=== PATIENT | male | born 1965 | race African-American/Black ===

== ENCOUNTER 2017-03-02 08:16 | Inpatient (IN) | payer OTHER ==
[~2017-03-02] VITALS: Ht 200.7 cm; Wt 124.3 kg
[~2017-03-02 08:16] MED LIST: CEPH-570 PO; LISI10TA5 PO; SIMV20TA6 PO
--- NOTE | 2017-03-02 08:23 | NUR ---
CYST ON GROIN AREA X 3 DAYS ELECTRONICS TECHNOLOGY DEPARTMENT CHAIR. GOWNED PT. AWAITING MD ORDER
[2017-03-02] MEDS ORDERED: HYDROMORPHONE 1 MG/1 ML DISP.SYRIN ONE ×2 (08:38→10:39)
--- NOTE | 2017-03-02 08:45 | NUR ---
LAC #18 IV ACCESS. BLOOD SAMPLE COLLECTED SENT TO LAB. PT MEDICATED ORDERED
[2017-03-02 08:52] LABS: BASOPHILS % (AUTO) 0.3 % (0.0-2.0); EOSINOPHILS % (AUTO) 0.4 % (0.0-6.0); HEMATOCRIT 46 % (39-51); HEMOGLOBIN 14.7 g/dL (13.5-17.5); LYMPHOCYTES # (AUTO) 1.5 /CMM (0.8-4.8); LYMPHOCYTES % (AUTO) 12.8 % (20.0-44.0); MEAN CORPUSCULAR HEMOGLOBIN 29 PG (26.0-33.0); MEAN CORPUSCULAR HGB CONC 32 g/dl (31.0-36.0); MEAN CORPUSCULAR VOLUME 89 fL (80-96); MONOCYTES # (AUTO) 0.8 /CMM (0.1-1.30); MONOCYTES % (AUTO) 7.1 % (2.0-12.0); NEUTROPHILS # (AUTO) 9.3 /CMM (1.8-8.9); NEUTROPHILS % (AUTO) 79.4 % (43.0-81.0); PLATELET COUNT (AUTO) 204 /CMM (150-450); RDW COEFFICIENT OF VARIATION 13.7 (11.5-15.0); RED BLOOD CELL COUNT(AUTO) 5.14 MIL/uL (4.5-6.0); WHITE BLOOD COUNT (AUTO) 11.7 K/uL (4.3-11.0)
--- NOTE | 2017-03-02 08:59 | NUR ---
CALLED XRAY PT READY FOR CT
[2017-03-02] MEDS ORDERED: HYDROMORPHONE INJ 2 MG/ML DISP.SYRIN IV ONE (09:00)
[2017-03-02 09:02] LABS: CREATININE 1.2 mg/dL (0.6-1.3); POTASSIUM 3.6 mmol/L (3.5-5.1)
[2017-03-02] MEDS ORDERED: CT SWABBABLE VALVE TRANS SET 1 EA INFUS.SET MC ONE (09:19)
[2017-03-02] MEDS ORDERED: IOHEXOL-300 100 ML VIAL IV ONE (09:19)
--- NOTE | 2017-03-02 09:19 | NUR ---
PT TAKEN TO CT
[2017-03-02] MEDS ORDERED: IV NS 0.9% 250 ML IV ONE (09:20)
--- NOTE | 2017-03-02 09:35 | NUR ---
PT BACK FROM CT
--- NOTE | 2017-03-02 09:39 | NUR ---
URINE SAMPLE COLLECTED SENT TO LAB
[2017-03-02 09:44] LABS: APPEARANCE,URINE Slightly Cloudy (CLEAR); BILIRUBIN,URINE SMALL (NEGATIVE); BLOOD, URINE Negative Ery/uL (NEGATIVE); COLOR,URINE Dark (YELLOW); KETONES,URINE Negative (NEGATIVE); LEUKOCYTE ESTERASE ,URINE Negative (NEGATIVE); NITRITE, URINE Negative (NEGATIVE); PH,URINE 5.5 (5.0-8.0); PROTEIN,URINE 30 mg/dl (NEGATIVE); UGLUCOSE Negative (NEGATIVE)
[2017-03-02 09:55] LABS: BACTERIA,URINE Rare /HPF (None Seen); RBC,URINE 0-2 /HPF (0-2); SQUAMOUS EPITHELIAL CELL,UR Rare /HPF (None Seen); WBC,URINE 0-2 /HPF (0-3)
[2017-03-02] MEDS ORDERED: LIDOCAINE 2% 20 ML MDV ONE (10:37)
[2017-03-02] MEDS ORDERED: LIDOCAINE 2%-EPI 1:100,000 30 ML VIAL TP ONE (11:00)
[2017-03-02] MEDS ORDERED: HYDROMORPHONE 1 MG/1 ML DISP.SYRIN IV ONE (11:00)
[2017-03-02] MEDS ORDERED: DULO30CA2 PO (11:02)
--- NOTE | 2017-03-02 11:45 | NUR ---
ms wound care rn notes Admitted a 52 years old male patient from ER who came in with the diagnosis of groin abscess, patient is alert and oriented x 4, verbally responsive and able to make needs known. Skin assessment done and picture taken and filed in the chart. Informed Dr. Rivera regarding admission orders and made aware. Per MD to keep patient NPO for I and D procedure. Vital signs checked and recorded. Kept patient clean and comfortable in bed, call light with in patient reach, will continue to monitor accordingly.
[2017-03-02 12:00] VITALS: BP 131/85
[2017-03-02] MEDS ORDERED: MORPHINE SULFATE INJ 2 MG/ML DISP.SYRIN IV PRN (13:00)
[2017-03-02] MEDS ORDERED: ONDANSETRON HCL/PF 4 MG/2 ML VIAL IVP PRN (13:00)
[2017-03-02] MEDS ORDERED: VANCOMYCIN 1 GM in IV D5W 250 ML IV SCH (13:00)
[2017-03-02] MEDS ORDERED: FEE PK DOSING 1 MIN EA MC ONE (13:13)
[2017-03-02] MEDS: IV NS 0.9% 1,000 ML IV PRN (13:46)
[2017-03-02] MEDS ORDERED: VANCOMYCIN 1.5 GM in IV D5W 500 ML IV SCH (14:00)
[2017-03-02] MEDS: PIPERACILLIN /TAZOBACTAM 3.375 G in IV D5W 50 ML IV SCH ×2 (14:21→18:07)
[2017-03-02 16:00] VITALS: BP 127/84
--- NOTE | 2017-03-02 19:00 | NUR ---
MS RN OPENING NOTES: RECEIVED PT IN BED AND IS AWAKE. PT IS A/OX3. PT A LITTLE BIT GRUMPY BECAUSE HE IS NPO. HE WAS INFORMED THAT OR WILL BE PICKING HIM UP SOON FOR PROCEDURE. PT HAS IV ON L AC #18G AND IS BEING INFUSED WITH NS AT 125ML/HR. CALL LIGHT WITHIN PT'S REACH. BED KEPT IN LOW, LOCKED POSITION, AND SIDE RAILS X 2 UP. WILL CONTINUE TO MONITOR PT.
--- NOTE | 2017-03-02 19:46 | NUR ---
ms rn closing notes All needs provided, attended, and anticipated. Kept patient clean and comfortable in bed, call light with in patient reach, endorsed to next shift RN to continue care. Patient still waiting for scheduled surgery I and D with Dr. Macias called OR and spoke to Luke and said he will be next on the schedule for tonight.
[2017-03-02 19:48] VITALS: BP 128/71
[2017-03-02 20:00] VITALS: BP 128/71
--- NOTE | 2017-03-02 20:00 | NUR ---
MS RN NOTES: ICE PACK APPLIED TO PT'S FOREHEAD AND COOLING MEASURES TAKEN PLACE WELL. WILL CONTINUE TO MONITOR PT'S TEMPERATURE.
--- NOTE | 2017-03-02 21:03 | NUR ---
MS RN NOTES: PT WENT DOWN FOR PROCEDURE. WATCH AND BRACELET LEFT UP FRONT AT CHARGE NURSE'S DRAWER.
[2017-03-02] MEDS ORDERED: SUCCINYLCHOLINE CHLORIDE 20 MG/ML VIAL ONE (21:13)
[2017-03-02] MEDS ORDERED: ROCURONIUM BROMIDE 50 MG/5 ML ONE (21:13)
[2017-03-02] MEDS ORDERED: BUPIVACAINE MPF W/EPI 0.25% 30 ML VIAL ONE (21:40)
[2017-03-02] MEDS ORDERED: LIDOCAINE 1% INJ 50 ML MDV IJ ONE (21:41)
[2017-03-02 22:50] VITALS: BP 118/78
--- NOTE | 2017-03-02 22:51 | NUR ---
MS MCKEON NOTES: PT BACK FROM OR. VITAL SIGNS STABLE. PT ON 2LPM VIA NC FOR NOW. Addendum: 03/03/17 at 0320 by BILL GONZALES RN PER DR. GREGG WRITTEN ORDERS, NO MORE ANTIBIOTICS.
[2017-03-02] MEDS ORDERED: ONDANSETRON HCL/PF 4 MG/2 ML VIAL IV PRN (23:00)
--- NOTE | 2017-03-02 23:00 | NUR ---
MS RN NOTES: DR. NY SAID THAT PATIENT CAN USE CPAP. WILL PUT IN ORDER AND HAVE RT COME TO THE FLOOR.
--- NOTE | 2017-03-02 23:05 | NUR ---
MS RN NOTES: WATCH AND BRACELET RETURNED TO PATIENT.
--- NOTE | 2017-03-02 23:30 | NUR ---
PT PLACED ON CPAP AT NIGHT PER MD'S ORDER. LINDA LUCIO NOTIFIED
[2017-03-03] MEDS: IV NS 0.9% 1,000 ML IV PRN (02:14)
--- NOTE | 2017-03-03 05:47 | NUR ---
TOOK OFF CPAP PER PT REQUEST. PT PLACED ON 2L VANDANA , LINDA LUCIO NOTIFIED
[2017-03-03 07:17] LABS: CALCIUM, SERUM 8.6 mg/dL (8.5-10.1); PHOSPHORUS 3.9 mg/dL (2.5-4.9); POTASSIUM 4.2 mmol/L (3.5-5.1)
[2017-03-03 07:20] LABS: HEMATOCRIT 44 % (39-51); HEMOGLOBIN 14.4 g/dL (13.5-17.5); LYMPHOCYTES # (AUTO) 0.8 /CMM (0.8-4.8); LYMPHOCYTES % (AUTO) 5.1 % (20.0-44.0); MEAN CORPUSCULAR HEMOGLOBIN 29 PG (26.0-33.0); MEAN CORPUSCULAR HGB CONC 32 g/dl (31.0-36.0); MEAN CORPUSCULAR VOLUME 89 fL (80-96); MONOCYTES # (AUTO) 0.5 /CMM (0.1-1.30); MONOCYTES % (AUTO) 3.3 % (2.0-12.0); NEUTROPHILS # (AUTO) 13.8 /CMM (1.8-8.9); NEUTROPHILS % (AUTO) 91.6 % (43.0-81.0); PLATELET COUNT (AUTO) 200 /CMM (150-450); RDW COEFFICIENT OF VARIATION 13.6 (11.5-15.0); RED BLOOD CELL COUNT(AUTO) 4.99 MIL/uL (4.5-6.0); WHITE BLOOD COUNT (AUTO) 15.1 K/uL (4.3-11.0)
[2017-03-03 07:28] LABS: THYROID STIMULATING HORMONE 0.264 uIU/mL (0.358-3.74)
--- NOTE | 2017-03-03 07:38 | NUR ---
MS RN CLOSING NOTES: ALL NEEDS WERE ATTENDED AND ANTICIPATED FOR. PT IS IN BED AND IS AWAKE. FRIEND BROUGHT IN HIS OWN CPAP MACHINE. ENDORSED TO AM NURSE THAT IT NEEDS TO BE CLEARED BY ENGINEERING BEFORE HE CAN USE IT FOR THE NIGHT. PT HAS IV ON L AC #18G AND IS BEING INFUSED WITH NS AT 125ML/HR. CALL LIGHT WITHIN PT'S REACH. BED KEPT IN LOW, LOCKED POSITION, AND SIDE RAILS X 2 UP. ENDORSED TO AM NURSE FOR JUDD.
--- NOTE | 2017-03-03 07:45 | NUR ---
MS RN OPENING NOTES PT IS ALERT AND ORIENTED IN NO APPARENT DISTRESS. CALL LIGHT WITHIN REACH. BED IS LOCKED AND LOWERED. SIDE RAILS ARE UP X2. WILL CONTINUE TO MONITOR.
[2017-03-03] MEDS: GABAPENTIN 300 MG CAPSULE PO SCH ×2 (08:05→13:35)
[2017-03-03 08:06] VITALS: BP 107/70
[2017-03-03] MEDS: HYDROCODONE/APAP 10/325MG 1 EA TABLET PO PRN ×2 (08:20→12:32)
[2017-03-03] MEDS ORDERED: PANTOPRAZOLE 40 MG VIAL IV SCH (09:00)
[2017-03-03] MEDS ORDERED: SULF1TAB48 PO (13:48)
[2017-03-03 16:00] VITALS: BP 107/57
--- NOTE | 2017-03-03 17:44 | NUR ---
MS RN CLOSING NOTES PATIENT IS IN STABLE CONDITION. WAS ESCORTED OUT OF THE HOSPITAL FOR DISCHARGE.
== END 2017-03-03 17:50 | disposition home or self-care (01) | DRG 951 ==
LOC: ER 08:18 → MED 11:26
PROC: 0J9B0ZZ Drainage of Perineum Subcutaneous Tissue and Fascia, Open Approach (ICD-10-PCS; principal; 2017-03-02 17:00)
DX: K61.0 Anal abscess (principal); L02.215 Cutaneous abscess of perineum; I10 Essential (primary) hypertension; Z96.659 Presence of unspecified artificial knee joint; Z88.6 Allergy status to analgesic agent; K57.30 Diverticulosis of large intestine without perforation or abscess without bleeding; M47.9 Spondylosis, unspecified; Z79.899 Other long term (current) drug therapy
CPT/HCPCS: 36415; 72193-TC; 80048-TC; 80061-TC; 81000-TC; 83735-TC; 84100-TC; 84443-TC; 85025-TC; 87070-TC; 87081-TC; A6253; A6402; A6403; A6407; C9113; J0330; J1100; J1170; J2405; J2543; J2704; J2710; J3370; J3490; J7030; J7050; J7060; Q9967; Z7610

== ENCOUNTER 2017-07-21 20:41 | Emergency (ER) | payer OTHER ==
[~2017-07-21 20:41] MED LIST changes: -CEPH-570 PO; +DULO30CA2 PO; +SULF1TAB48 PO
--- NOTE | 2017-07-21 21:23 | NUR ---
PATIENT STARTED TO CURSE AT ME WHEN STATED HE WILL BE WAITING FOR A BED, PT STATES CANCLE MY SHIT I AM LEAVING AND WALKED OUT OF THE ER WITH A STEADY GAIT.
== END 2017-07-21 21:24 | disposition left against medical advice (07) ==
LOC: ER 20:44
DX: Z53.21 Procedure and treatment not carried out due to patient leaving prior to being seen by health care provider (principal)
CPT/HCPCS: A4606; Z7610

== ENCOUNTER 2017-10-25 14:02 | Inpatient (IN) | payer OTHER ==
[~2017-10-25] VITALS: Ht 200.7 cm; Wt 121.1 kg
--- NOTE | 2017-10-25 14:59 | NUR ---
PATIENT TO ED DT LOWER ABDPMINAL PAIN, / SINCE WEDNESDAY, WORSEINNG GRADUALLY. PATIENT ALSO CO NAUSEA, DIARRHEA. SKIN IS WARM TO TOUCH AND NON DIAPHORETIC, PT IS AFEBRILE./ VSS
[2017-10-25 15:00] LABS: BASOPHILS % (AUTO) 0.7 % (0.0-2.0); EOSINOPHILS % (AUTO) 1.8 % (0.0-6.0); HEMATOCRIT 50 % (39-51); HEMOGLOBIN 16.3 g/dL (13.5-17.5); LYMPHOCYTES # (AUTO) 1.6 /CMM (0.8-4.8); LYMPHOCYTES % (AUTO) 29.1 % (20.0-44.0); MEAN CORPUSCULAR HGB CONC 33 g/dl (31.0-36.0); MEAN CORPUSCULAR VOLUME 87 fL (80-96); MONOCYTES # (AUTO) 0.4 /CMM (0.1-1.30); MONOCYTES % (AUTO) 6.7 % (2.0-12.0); NEUTROPHILS # (AUTO) 3.5 /CMM (1.8-8.9); NEUTROPHILS % (AUTO) 61.7 % (43.0-81.0); PLATELET COUNT (AUTO) 215 /CMM (150-450); RDW COEFFICIENT OF VARIATION 12.9 (11.5-15.0); RED BLOOD CELL COUNT(AUTO) 5.71 MIL/uL (4.5-6.0); WHITE BLOOD COUNT (AUTO) 5.6 K/uL (4.3-11.0)
[2017-10-25] MEDS ORDERED: IV NS 0.9% 1,000 ML BAG IV ONE (15:00)
[2017-10-25] MEDS ORDERED: MORPHINE SULFATE INJ 4 MG/ML DISP.SYRIN ONE (15:04)
[2017-10-25] MEDS ORDERED: ONDANSETRON HCL/PF 4 MG/2 ML VIAL ONE (15:04)
[2017-10-25] MEDS: MORPHINE SULFATE INJ 2 MG/ML DISP.SYRIN IV ONE ×2 (15:08→15:51)
[2017-10-25] MEDS: ONDANSETRON HCL/PF 4 MG/2 ML VIAL IVP ONE ×2 (15:08→15:51)
[2017-10-25 15:09] LABS: CREATININE 1.3 mg/dL (0.6-1.3); POTASSIUM 4.3 mmol/L (3.5-5.1)
[2017-10-25 15:14] LABS: ALBUMIN 3.6 g/dL (3.4-5.0); BILIRUBIN,DIRECT 0.1 mg/dL (0.0-0.2); BILIRUBIN,TOTAL 0.5 mg/dL (0.2-1.0)
[2017-10-25] MEDS ORDERED: ONDANSETRON HCL/PF 4 MG/2 ML VIAL IV STA (15:14)
[2017-10-25] MEDS ORDERED: MORPHINE SULFATE INJ 2 MG/ML DISP.SYRIN IV ONE (15:30)
[2017-10-25] MEDS ORDERED: ACET1TAB23 PO (15:48)
[2017-10-25] MEDS ORDERED: TRAZ-213 PO (15:48)
--- NOTE | 2017-10-25 15:51 | NUR ---
MORPHINE 4MG IV AND ZOFRAN 4MG IV ORDER WAS DOUBLED IN [facility] ONCE PULLED OUT FROM [facility]. CALLED [facility] FOR CLARIFICATION AND WAS INFORMED TO UNDO ONE ORDER WHICH WAS AUTOMACALLY MARKED GIVEN. MADE AWARE. PATIENT RECEIVED MORPHINE 4MG ONLY AND ZOFRAN 4MG ONLY ORDERED. INCIDENT WITNESSED BY LINDA MONTALVO.
--- NOTE | 2017-10-25 16:00 | NUR ---
CALLED NURSE TRENA FOR MED-SURG BED
--- NOTE | 2017-10-25 16:35 | NUR ---
PAGED EPIC CLOUD CONSULTANT - LIFE SCIENTIST MIREYA FLORIAN - FOR PANEL
--- NOTE | 2017-10-25 16:35 | NUR ---
[facility]
--- NOTE | 2017-10-25 16:43 | NUR ---
URINE SAMPLE SENT TO LAB
[2017-10-25 17:03] LABS: APPEARANCE,URINE CLEAR (CLEAR); BILIRUBIN,URINE NEGATIVE (NEGATIVE); BLOOD, URINE NEGATIVE Ery/uL (NEGATIVE); COLOR,URINE YELLOW (YELLOW); KETONES,URINE 1+ (NEGATIVE); LEUKOCYTE ESTERASE ,URINE NEGATIVE (NEGATIVE); NITRITE, URINE NEGATIVE (NEGATIVE); PH,URINE 5.5 (5.0-8.0); PROTEIN,URINE NEGATIVE (NEGATIVE); UGLUCOSE NEGATIVE (NEGATIVE)
[2017-10-25 17:19] LABS: BACTERIA,URINE None seen /HPF (None Seen); RBC,URINE NONE SEEN /HPF (0-2); SQUAMOUS EPITHELIAL CELL,UR Few /HPF (None Seen); WBC,URINE 0-2 /HPF (0-3)
[2017-10-25] MEDS ORDERED: MAGNESIUM HYDROXIDE 30 ML UDC PO PRN (17:30)
[2017-10-25] MEDS ORDERED: AZITHROMYCIN 250 MG TABLET PO SCH (17:30)
[2017-10-25] MEDS ORDERED: MAG HYDROX/AL HYDROX/SIMETH 30 ML UDC PO PRN (17:30)
[2017-10-25] MEDS ORDERED: Z GUARD REMEDY 2 OZ OINT TP PRN (17:30)
[2017-10-25] MEDS ORDERED: ONDANSETRON HCL/PF 4 MG/2 ML VIAL IVP PRN (17:30)
[2017-10-25] MEDS ORDERED: ACETAMINOPHEN 325 MG TABLET PO PRN (17:30)
--- NOTE | 2017-10-25 17:35 | NUR ---
PATIENT TRANSPORTED TO MS. S
--- NOTE | 2017-10-25 17:36 | NUR ---
MS RAIL SPECIALIST NOTE PATIENT BROUGHT BY HÉCTOR FROM ER. RECEIVED REPORT FOR LINDA RAYGOZA. PATIENT IS ALERT AND ORIENTED x4. PATIENT STATES 8/10. PAIN MEDICATION TO BE GIVEN ONCE ORDERS ARE GIVEN. ALL BELONGINGS ACCOUNTED FOR AND AT BEDSIDE. NO SKIN ISSUES PRESENT AT THIS TIME. ON ROOM AIR AT 97%. AMBULATORY. IV ON LEFT AC 18G INTACT AND PATENT NO REDNESS OR SWELLING NOTED. ABLE TO COMMUNICATE NEEDS. CALL LIGHT WITHIN REACH AND SAFETY MEASURES IMPLEMENTED. ALLERGIES-IBUPROFEN NOTED. WILL CONTINUE TO MONITOR AND AWAITING MD ORDERS AT THIS TIME.
[2017-10-25] MEDS: MORPHINE SULFATE INJ 4 MG/ML DISP.SYRIN IV PRN (17:50)
[2017-10-25] MEDS: IV NS 0.9% 1,000 ML IV PRN (17:51)
[2017-10-25 17:54] VITALS: BP 145/74
[2017-10-25] MEDS: CIPROFLOXACIN HCL 500 MG TABLET PO SCH (18:53)
--- NOTE | 2017-10-25 18:58 | NUR ---
MS RN CLOSING NOTE PATIENT IS RESTING IN BED AT THIS TIME. CALL LIGHT WITHIN REACH AT ALL TIMES. SAFETY MEASURES IMPLEMENTED. ABLE TO COMMUNICATE NEEDS. IV INTACT AND PATENT NO REDNESS OR SWELLING NOTED WITH IV FLUIDS RUNNING AT 75 ML/HR. ABLE TO COMMUNICATE NEEDS. ALL DUE MEDICATIONS GIVEN ORDERED BY MD. ALL NURSING CARE NEEDS ATTENDED TO NEEDED. NO FACIAL GRIMACING NOTED FOR PAIN. NO SOB OR DISTRESS NOTED. WILL ENDORSE TO MECHANIC INSULATOR NURSE FOR JUDD
--- NOTE | 2017-10-25 19:33 | NUR ---
MSRN FULLY AWAKE, DENIES ANY DISCOMFORTS OF THIS TIME. IVF INFUSING WELL AT 75CC/HR. INSTRUCTED TO CALL STAFF FOR ANY DISCOMFORTS OR ASSISTANCE. PLAN OF CARE AND MEDICATION REGIMEN INSTRUCTED, WELL UNDERSTOOD. ALL NEEDS MADE.
[2017-10-25 19:58] VITALS: BP 137/75
[2017-10-25 20:00] VITALS: BP 137/75
[2017-10-25] MEDS: SIMVASTATIN 20 MG TABLET PO SCH (22:20)
--- NOTE | 2017-10-25 22:25 | NUR ---
MSRN DUE MED ADMINISTERED. NO OTHER DISCOMFORTS MADE. KEPT COMFORTABLE.
--- NOTE | 2017-10-26 04:40 | NUR ---
MSRN VERBALIZES SEVERE ABDOMINAL AND HEADACHE, MORPHINE 1MG IVP ADMINISTERED. NS AT 75CC/HR CONTINUED. MED UNABLE TO BARCODE, COMPUTER DOWN.
[2017-10-26 06:25] LABS: BASOPHILS % (AUTO) 0.5 % (0.0-2.0); EOSINOPHILS % (AUTO) 3.3 % (0.0-6.0); HEMATOCRIT 44 % (39-51); HEMOGLOBIN 14.1 g/dL (13.5-17.5); LYMPHOCYTES # (AUTO) 1.6 /CMM (0.8-4.8); LYMPHOCYTES % (AUTO) 31.1 % (20.0-44.0); MEAN CORPUSCULAR HGB CONC 33 g/dl (31.0-36.0); MEAN CORPUSCULAR VOLUME 91 fL (80-96); MONOCYTES # (AUTO) 0.5 /CMM (0.1-1.30); MONOCYTES % (AUTO) 10.2 % (2.0-12.0); NEUTROPHILS # (AUTO) 2.8 /CMM (1.8-8.9); NEUTROPHILS % (AUTO) 54.9 % (43.0-81.0); PLATELET COUNT (AUTO) 187 /CMM (150-450); RDW COEFFICIENT OF VARIATION 13.9 (11.5-15.0); RED BLOOD CELL COUNT(AUTO) 4.79 MIL/uL (4.5-6.0); WHITE BLOOD COUNT (AUTO) 5.1 K/uL (4.3-11.0)
--- NOTE | 2017-10-26 06:29 | NUR ---
MSRN SLEEPING OF THIS TIME, RADIOLOGY INFORMED OF CT OF PELVIS NO CONTRAST. WILL DO TODAY
[2017-10-26 06:45] LABS: THYROID STIMULATING HORMONE 1.991 uIU/mL (0.358-3.74)
[2017-10-26 07:06] LABS: CALCIUM, SERUM 8.7 mg/dL (8.5-10.1); CREATININE 1.1 mg/dL (0.6-1.3); PHOSPHORUS 3.9 mg/dL (2.5-4.9); POTASSIUM 4.3 mmol/L (3.5-5.1)
--- NOTE | 2017-10-26 07:30 | NUR ---
m/s short order fry cook: initial assessment received pt in bed awake, a/ox4. on clear liquid diet. ivf infusing well. bs present, but tender to palpate. instructed to call for assistance. will continue to monitor.
[2017-10-26 08:00] VITALS: BP 125/75
[2017-10-26] MEDS: LISINOPRIL (10MG) 10 MG TABLET PO SCH (08:22)
[2017-10-26] MEDS: METRONIDAZOLE 500 MG TABLET PO SCH ×2 (08:23→16:05)
[2017-10-26] MEDS: CIPROFLOXACIN HCL 500 MG TABLET PO SCH ×2 (08:26→20:32)
--- NOTE | 2017-10-26 08:30 | NUR ---
m/s chha: notes pt tolerated clear liquid diet, no n/v noted, but abdomen c d still operator to palpate. awaiting md olivas. will monitor.
[2017-10-26] MEDS: PANTOPRAZOLE 40 MG VIAL IV SCH (08:35)
[2017-10-26] MEDS: MORPHINE SULFATE INJ 4 MG/ML DISP.SYRIN IV PRN (08:36)
--- NOTE | 2017-10-26 09:50 | NUR ---
m/s mold mover: md visit seen and examined by dr. ruth with verbal order to d'c azithromycin. order read back and carried out. continue plan of care ivf, cipro and flagyl antibiotic and gi consult as stated. pt verbalized understanding.
--- NOTE | 2017-10-26 14:00 | NUR ---
m/s gutter hanger: notes resting comfortable in bed. no c/o abdominal pain, n/v at this time. continue on ivf, infusing well. instructed to call for assistance.
[2017-10-26 16:00] VITALS: BP_SYST 132; BP_DIAS 75; BP_DIAS 78
[2017-10-26] MEDS: IV NS 0.9% 1,000 ML IV PRN (17:50)
--- NOTE | 2017-10-26 17:50 | NUR ---
m/s medical advisor: notes still awaiting for dr. iqbal to come see pt for gi consult. f/u made to md, left message via voice mail. will continue to monitor. pt made aware.
--- NOTE | 2017-10-26 19:30 | NUR ---
ANABELL BULLARDUNG TO RESTROOM URGE TO HAVE BM. AWARE NEED TO HAVE STOOL SPECIMEN COLLECTED. ABD PAIN TOLERABLE FOR NOW. VISITOR AT BEDSIDE.
[2017-10-26 20:32] VITALS: BP 137/87
[2017-10-26] MEDS: SIMVASTATIN 20 MG TABLET PO SCH (20:33)
--- NOTE | 2017-10-26 20:45 | NUR ---
MSRN STOOL SENT
[2017-10-26 22:49] LABS: OCCULT BLOOD STOOL NEGATIVE (NEGATIVE)
--- NOTE | 2017-10-27 06:29 | NUR ---
MSRN SLEEPING STILL APPEARS COMFORTABLE. GOOD URINE OUTPUT. PRESENT IVF INFUSING WELL. NEED TO FOLLOW UP GI CONSULT.
[2017-10-27 07:29] LABS: EOSINOPHILS % (AUTO) 3.2 % (0.0-6.0); HEMATOCRIT 43 % (39-51); LYMPHOCYTES # (AUTO) 1.4 /CMM (0.8-4.8); LYMPHOCYTES % (AUTO) 38.9 % (20.0-44.0); MEAN CORPUSCULAR HGB CONC 33 g/dl (31.0-36.0); MEAN CORPUSCULAR VOLUME 91 fL (80-96); MONOCYTES # (AUTO) 0.4 /CMM (0.1-1.30); NEUTROPHILS # (AUTO) 1.6 /CMM (1.8-8.9); NEUTROPHILS % (AUTO) 44.9 % (43.0-81.0); PLATELET COUNT (AUTO) 189 /CMM (150-450); RDW COEFFICIENT OF VARIATION 13.7 (11.5-15.0); RED BLOOD CELL COUNT(AUTO) 4.71 MIL/uL (4.5-6.0); WHITE BLOOD COUNT (AUTO) 3.5 K/uL (4.3-11.0)
[2017-10-27 07:45] LABS: CALCIUM, SERUM 8.8 mg/dL (8.5-10.1)
[2017-10-27 08:00] VITALS: BP 129/90
--- NOTE | 2017-10-27 08:00 | NUR ---
MS RN RECEIVED ON BED, AWAKE,ALERT,ORIENTED X4,NOT IN ANY FORM OF DISTRESS,RESPIRATIONS EVEN AND UNLABORED, NO SOB NOTED, LUNGS ARE CLEAR,ABDOMEN SOFT, POSITIVE BOWEL SOUNDS,DENIES PAIN AT THIS TIME WILL MONITOR PATIENT'S CONDITION,ALL NEEDS ATTENDED.
--- NOTE | 2017-10-27 09:00 | NUR ---
MS MCKEON BREAKFAST SERVED,DUE MEDS GIVEN,TOLERATED WELL.
[2017-10-27] MEDS: PANTOPRAZOLE 40 MG VIAL IV SCH (09:02)
[2017-10-27] MEDS: METRONIDAZOLE 500 MG TABLET PO SCH ×2 (09:02→17:55)
[2017-10-27] MEDS: CIPROFLOXACIN HCL 500 MG TABLET PO SCH ×2 (09:02→21:20)
[2017-10-27] MEDS: LISINOPRIL (10MG) 10 MG TABLET PO SCH (09:03)
--- NOTE | 2017-10-27 11:00 | NUR ---
MS RN WAS SEEN BY DR. TRUONG W/ ORDERS MADE AND CARRIED OUT.
[2017-10-27 16:00] VITALS: BP 130/78
--- NOTE | 2017-10-27 16:00 | NUR ---
MS RN ON BED,NO DISTRESS NOTED.
--- NOTE | 2017-10-27 19:42 | NUR ---
RN MS OPENING NOTES RECEIVED PATIENT IN BED, AWAKE ALERT AND ORIENTED X4, ABLE TO MAKE NEEDS KNOWN, RESPIRATIONS EVEN AN UNLABORED WITH EQUAL RISE AND FALL OF CHEST, NO DISTRESS PRESENT, DENIES ANY PAIN OR DISCOMFORT AT THIS TIME, LEFT FA #18GAUGE INTACT AND PATENT, NO REDNESS ,NO INFILTRATION PRESENT, PER PATIENT DOES NOT IVF RUNNING AT THIS TIME, MEAL NOTED A TBEDSIDE ORIENTED TO STAFF AND CALL LIGHT, CALL LIGHT KEPT WITHIN REACH , PLAN OF CARE DISCUSSED, FLUIDS OFFERED, ALL NEEDS ATTENDED AT THIS TIME,REMAINS COMFORTABLE , WILL CONTINUE TO MONITOR.
[2017-10-27 20:00] VITALS: BP 136/77
[2017-10-27] MEDS: SIMVASTATIN 20 MG TABLET PO SCH (21:20)
[2017-10-28 06:05] LABS: BASOPHILS % (AUTO) 0.6 % (0.0-2.0); EOSINOPHILS % (AUTO) 2.9 % (0.0-6.0); HEMATOCRIT 44 % (39-51); HEMOGLOBIN 14.2 g/dL (13.5-17.5); LYMPHOCYTES # (AUTO) 1.4 /CMM (0.8-4.8); LYMPHOCYTES % (AUTO) 33.7 % (20.0-44.0); MEAN CORPUSCULAR HGB CONC 32 g/dl (31.0-36.0); MEAN CORPUSCULAR VOLUME 91 fL (80-96); MONOCYTES # (AUTO) 0.4 /CMM (0.1-1.30); NEUTROPHILS # (AUTO) 2.2 /CMM (1.8-8.9); NEUTROPHILS % (AUTO) 52.8 % (43.0-81.0); PLATELET COUNT (AUTO) 202 /CMM (150-450); WHITE BLOOD COUNT (AUTO) 4.2 K/uL (4.3-11.0)
[2017-10-28 06:31] LABS: CALCIUM, SERUM 9.2 mg/dL (8.5-10.1); CREATININE 1.2 mg/dL (0.6-1.3); POTASSIUM 3.9 mmol/L (3.5-5.1)
--- NOTE | 2017-10-28 06:43 | NUR ---
RN MS CLOSING NOTES PATIENT IN BED, SLEEPING BUT EASILY AROUSABLE ALERT AND ORIENTED X4, ABLE TO MAKE NEEDS KNOWN, RESPIRATIONS EVEN AN UNLABORED WITH EQUAL RISE AND FALL OF CHEST, NO DISTRESS PRESENT, DENIES ANY PAIN OR DISCOMFORT AT THIS TIME, LEFT FA #18GAUGE INTACT AND PATENT, NO REDNESS ,NO INFILTRATION PRESENT, PER PATIENT DOES NOT IVF RUNNING, NOTED PATIENT ABLE TO TOLERATE PO FLUID INTAKE, PO INTAKE ENCOURAGED TOLERATED, CALL LIGHT KEPT WITHIN REACH , FLUIDS OFFERED, ALL NEEDS ATTENDED AT THIS TIME,REMAINS COMFORTABLE , WILL CONTINUE TO MONITOR AND ENDORSE TO NEXT SHIFT
--- NOTE | 2017-10-28 07:32 | NUR ---
MS RN OPENING NOTES RECEIVED PATIENT AWAKE IN BED IN NO ACUTE SIGNS OF DISTRESS. A/O X4. ABLE TO MAKE NEEDS KNOWN, NO COMPLAINTS OF PAIN OR DISCOMFORT VOICED AT THIS TIME. ON ROOM AIR, RESPIRATIONS EVEN AN UNLABORED. IV ACCESS ON LEFT AC G #18 INTACT AND PATENT, NO REDNESS OR INFILTRATION NOTED, IVF REFUSED BY PATIENT. HOB ELEVATED. BED IN LOW/LOCKED POSITION. CALL LIGHT WITHIN REACH. WILL CONTINUE TO MONITOR.
[2017-10-28 08:00] VITALS: BP 136/55
[2017-10-28] MEDS: CIPROFLOXACIN HCL 500 MG TABLET PO SCH (08:32)
[2017-10-28] MEDS: PANTOPRAZOLE 40 MG VIAL IV SCH (08:32)
[2017-10-28] MEDS: METRONIDAZOLE 500 MG TABLET PO SCH (08:32)
[2017-10-28 08:33] VITALS: BP 136/65
[2017-10-28] MEDS: LISINOPRIL (10MG) 10 MG TABLET PO SCH (08:33)
[2017-10-28] MEDS ORDERED: CIPR500T5 PO (11:36)
[2017-10-28] MEDS ORDERED: METR500T PO (11:36)
--- NOTE | 2017-10-28 15:16 | NUR ---
RN DISCHARGED NOTES PATIENT DISCHARGED HOME IN STABLE CONDITION. A/O X 4, SAME VERBALLY RESPONSIVE WITH NO C/O PAIN OR DISTRESS DURING DISCHARGE. V/S TAKEN AND RECORDED. SKIN IS INTACT. BELONGINGS CHECKED, COUNTED AND SIGNED FORM. PRESCRIPTION OF PO ANTIBIOTICS HANDED TO PT. HEALTH TEACHINGS AND DISCHARGE INSTRUCTIONS GIVEN, PT VERBALIZED UNDERSTANDING. PT LEFT UNIT AT 1510 AMBULATORY ACCOMPANIED BY ASSIGNED RN LPN LVN TO THE LOBBY. PT STATED THAT HE WILL TAKE THE BUS TO GO HOME. MD AND CHARGE NURSE AWARE OF DISCHARGE.
== END 2017-10-28 15:00 | disposition home or self-care (01) | DRG 139 ==
LOC: ER 14:05 → MED 16:54
PROVIDERS: ADMIT Registered Nurse; ATTEND Registered Nurse
DX: J18.9 Pneumonia, unspecified organism (principal); J90 Pleural effusion, not elsewhere classified; K52.9 Noninfective gastroenteritis and colitis, unspecified; J20.8 Acute bronchitis due to other specified organisms; I10 Essential (primary) hypertension; E78.5 Hyperlipidemia, unspecified; K57.90 Diverticulosis of intestine, part unspecified, without perforation or abscess without bleeding; Z98.1 Arthrodesis status; Z96.653 Presence of artificial knee joint, bilateral; Z88.6 Allergy status to analgesic agent; Z79.899 Other long term (current) drug therapy; G89.4 Chronic pain syndrome
CPT/HCPCS: 36415; 71045-TC; 80048-TC; 80061-TC; 80076-TC; 81000-TC; 82272-TC; 83690-TC; 83735-TC; 84100-TC; 84443-TC; 85025-TC; 87045-TC; 87081-TC; 87177; 87209; 89055; A4606; C9113; J2270; J2405; J7030; Z7610